=== PATIENT | female | born 1965 | race Caucasian/White ===

== ENCOUNTER 2017-05-13 17:29 | Inpatient (IN) | payer OTHER ==
[~2017-05-13] VITALS: Ht 154.9 cm; Wt 87.8 kg
--- NOTE | ~2017-05-13 | HP ---
PATIENT'S NAME: YONNY SHINE [facility] AGE: 52 Y [address] ROOM: [id number] [place], [place] [address] [facility] AD[facility] DATE: 05/13/2017 History & Physical DISCHARGE DATE: FAMILY PHYSICIAN: PHYSICIAN, UNKNOWN ATTENDING PHYSICIAN: Son Orellana DATE OF SERVICE: CHIEF COMPLAINT: Vaginal bleeding. HISTORY OF PRESENT ILLNESS: The patient is a 52-year-old female with a past medical history of type 2 diabetes mellitus, smoking, and recent diagnosis of a DVT who presents here with vaginal bleeding from [facility]. The patient was recently diagnosed with right lower extremity possible DVT. She was started on Xarelto, currently taking 15 mg p.o. twice a day. The patient reports that on she started having some vaginal bleeding. This bleeding has been progressively getting worse until today. She reports that for the past 3 days including on Sunday and Sunday and Sunday she had been having heavy bleeding. However, today she had to change multiple pads as she was having multiple vaginal bleeding. Her symptoms of bleeding were also associated with fatigue and lightheadedness. The patient went to [facility] and was found to have a hemoglobin of 6.8 compared to her last hemoglobin of 15. The patient received 4 units of packed red blood cells and transferred to our hospital for further care. The patient was seen by Dr. Lewis our AUTOMAT WATCHER and had a vaginal ultrasound which showed thickened endometrium measuring up to 2.2 cm and also likely small uterine fibroids with the largest measuring up to 2.3 cm. During her stay, her bleeding subsidized. Her repeat hemoglobin is 9.7. The patient reports that her last Coumadin was taken this morning. Of note, the patient does not have a definite report on her ultrasound. She reports that she got the ultrasound done on May 02 for superficial varicose vein. Ultrasound was done and the press operator meat told her she has a knot on her right upper thigh and a knot in her left. No knots on her right calf. She is not quite sure whether it is superficial or deep vein. Currently, we do not have the reports. The patient also reports of family history of DVT which include her mother, her son, and 2 of her maternal uncles. The patient denies any chest pain, shortness of breath, abdominal pain, nausea, vomiting, vertigo, dizziness, productive cough. PAST MEDICAL HISTORY: 1. Diabetes mellitus, type 2. 2. Smoking. 3. Recent history of DVT. [facility]GE[facility] 52 Y [address] ROOM: [id number] [place], [place] [address] [facility] AD[facility] DATE: 05/13/2017 History & Physical DISCHARGE DATE: FAMILY PHYSICIAN: PHYSICIAN, UNKNOWN ATTENDING PHYSICIAN: Son Orellana SURGICAL HISTORY: She has had multiple colon biopsies. FAMILY HISTORY: Mother has a history of DVT, son has a history of DVT, 2 of her maternal uncles have a history of DVT. 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 She has close to 35 years smoking history. She has 3 kids. MEDICATIONS: 1. Metformin. 2. Xarelto. REVIEW OF SYSTEMS: All systems have been reviewed and are negative except for what I mentioned in the HPI. PHYSICAL EXAMINATION: VITAL SIGNS: Afebrile. Blood pressure 117/64, heart rate of 83, respiratory rate 16, and saturating 95% on room air. GENERAL APPEARANCE: The patient is alert and awake, in no acute distress. HEAD: Normocephalic, atraumatic. EYES: Extraocular muscle intact. Sclerae nonicteric. NOSE: No nasal discharge. CHEST: Clear to auscultation bilaterally. HEART: Regular rate and rhythm. No murmurs, rubs, or gallops. MOUTH: Moist oral mucosa. ABDOMEN: Soft, nontender, and nondistended. Bowel sounds present. : The patient currently has a Burrell catheter in, no active bleeding seen around the orifice of the vagina. SKIN: Warm to touch. EVENT DECORATOR AND DESIGNER: The patient is alert and oriented x3. Motor and sensory are grossly intact. MUSCULOSKELETAL: Range of motion intact. LABORATORY DATA: Lactate 0.6. Hemoglobin 9.7, platelet 154, white blood cell of 11.7. BUN of 12, creatinine 0.5. Sodium 145, chloride of 116. HCG is found to be below 1. ASSESSMENT AND PLAN: 1. Acute blood loss anemia. Etiology is secondary to vaginal bleed and concurrent use of Xarelto. We will hold Xarelto for now. The patient's PATIENT'S NAME: F[facility]TIMA, [facility] AGE: 52 Y [address] ROOM: [address] [place], [place] [address] [facility] AD[facility] DATE: 05/13/2017 History & Physical DISCHARGE DATE: FAMILY PHYSICIAN: PHYSICIAN, UNKNOWN ATTENDING PHYSICIAN: Son Orellana hemoglobin initially was 6.8 from baseline of 15. The patient has received 4 units of blood. To check hemoglobin every 4 hours. We will type and screen. We will transfuse as needed. The patient already has an 18-gauge peripheral vein. We will add another 18-gauge. The patient is hemodynamically stable. We will follow clinically. 2. Vaginal bleeding. Etiology secondary to Xarelto use. However, ultrasound shows endometrial thickening and possible small fibroid. The patient is currently not bleeding. To transfuse as needed. Discussed case with Dr. Lewis. To hold any surgical intervention for now since the patient is currently on Xarelto, or at least she took Xarelto today. To evaluate tomorrow for possible hysterectomy on Sunday. 3. Deep vein thrombosis. The patient's right lower extremity history of DVT was acquired from the ultrasound press operator meat at [facility]. Not quite sure whether this is peripheral or actual deep vein thrombosis. We will repeat ultrasound Doppler here. If the patient has acute deep vein thrombosis, we will consider putting IVC filter until the patient gets surgical intervention. Also, it would be interesting to check some clotting disorder as patient has a family history of DVT. Discussed case with Dr. Tiwari. Dr. Tiwari to see this patient tomorrow. We will check a factor V Leiden and protamine gene mutation. Apparently, at the outside hospital, they had done a test for antiphospholipid syndrome and was told to have the repeat in 12 weeks before she was fully diagnosed with it. 4. Diabetes mellitus type 2. We will hold metformin for now, and we will put the patient on a sliding scale insulin. Greater than 70 minutes was spent on the patient's care and greater than 50% of the time was spent on direct patient care. Assessment and plan was discussed with the patient. The patient's and family question were answered with satisfaction. Also, case was discussed with Dr. Tiwari with Oncology Group and Dr. Lewis with AUTOMAT WATCHER. Code status discussed on admission. Code status, full code. MD Ratna FOSTER /[id number] D: [id number] T: [id number] HISTORY & PHYSICAL
--- NOTE | ~2017-05-13 | ER ---
PATIENT'S NAME: YONNY JUARES [facility] AGE: 52 Y [address] ROOM: [place] [address] LOCATION: [facility]U ADMIT DATE: 05/13/2017 ER/Outpatient Report DISCHARGE DATE: FAMILY PHYSICIAN: PHYSICIAN, UNKNOWN ATTENDING PHYSICIAN: Son Orellana CHIEF COMPLAINT: Vaginal bleeding. HISTORY OF PRESENT ILLNESS: Ms. Juares arrives by ambulance from [facility], where she was seen for vaginal bleeding. She states that she has a history of leg DVT and was started on Xarelto 10 days ago. At that time, her hemoglobin was 15, today it was 6.8. Around noon, she felt a significant increase in her vaginal bleeding with soaking through pads, thus went to the ER. She was seen there and found to be hypotensive and borderline tachycardic. She was given a total of 3 units of blood, is currently on her 4th, and had 3000 mL of normal saline for volume resuscitation. The local provider did try Cytotec by rectum with no decrease in her flow. Her vital signs have improved markedly since her initial evaluation. She was transferred here for OB-QUILLER MACHINE FIXER cares. PAST MEDICAL HISTORY: Documented on the record and reviewed by me. SOCIAL HISTORY: Documented on the record and reviewed by me. MEDICATIONS: Documented on the record and reviewed by me. ALLERGIES: DOCUMENTED ON THE RECORD AND REVIEWED BY ME. REVIEW OF SYSTEMS: All systems were reviewed and negative except as noted in the HPI. PHYSICAL EXAMINATION: VITAL SIGNS: Blood pressure 113/58, pulse 80, respiratory rate is 20, temperature 98.7, and SpO2 is 97% on room air. Pain 0/10. GENERAL: An age-appropriate female, recumbent on the exam table, in no apparent pain or distress. NEUROLOGIC: Awake and alert. GCS 15. Did not stand up for obvious reasons. HEENT: Normocephalic, atraumatic. Eyes are PERRL. Oropharynx is clear. NECK: Supple. Trachea is midline. CHEST: Heart has regular rate and rhythm. No murmurs. PATIENT'S NAME: YONNY JUARES [facility] AGE: 52 Y [address] ROOM: [place] [address] LOCATION: [facility]PCU ADMIT DATE: 05/13/2017 ER/Outpatient Report DISCHARGE DATE: FAMILY PHYSICIAN: PHYSICIAN, UNKNOWN ATTENDING PHYSICIAN: Son Orellana LUNGS: Clear to auscultation bilateral. No rhonchi, wheezes, or rales. ABDOMEN: Soft with minimal tenderness in the suprapubic region. Slight fullness was appreciated on exam. No rebound or guarding, otherwise. BACK: Grossly normal. EXTREMITIES: Warm and well perfused. SKIN: Clean, dry, and intact, but slightly pallorous. LABORATORY DATA AND X-RAYS: White count 11.7, hemoglobin 9.7, platelets of 154. INR is 1. HCG is undetectable. Procalcitonin is undetectable. CMS with mild hyperchloremia of 116, otherwise grossly unremarkable from an electrolyte standpoint. Renal function is appropriate. GFR is greater than 90. There are no obvious LFT abnormalities. FSH and LH obtained per Dr. Lewis at 15.2 and 10.0 respectively. Lactate 0.6. IMPRESSION: 1. Severe vaginal bleeding related to oral anticoagulant use. 2. Mild hyperchloremic metabolic acidosis related to volume expansion. EMERGENCY DEPARTMENT COURSE: The patient was seen and evaluated as above. She was deemed to be stable. Dr. Lewis evaluated the patient. She has recommended close observation of bleeding status. I spoke with Dr. Orellana, hospitalist to admit the patient for management of her bleeding status to ensure stabilization. Dr. Lewis will consult. All questions answered, and the patient was admitted without further issue. MD VENUS GROSS/sheila /[id number] d: 05/14/17 0817 t: 05/30/17 1254, OUTPATIENT REPORT
--- NOTE | ~2017-05-13 | CON ---
PATIENT'S NAME: FÁTIMA, [facility] AGE: 52 Y [address] ROOM: [place] [address] [facility] AD[facility] DATE: 05/13/2017 Consultation DISCHARGE DATE: FAMILY PHYSICIAN: PHYSICIAN, UNKNOWN ATTENDING PHYSICIAN: Son Orellana REFERRING PHYSICIAN: Tala Tiwari MD HISTORY OF PRESENT ILLNESS: This is a 52-year-old 8, para 3-0-5-3, who presents with heavy vaginal bleeding, on Xarelto. She was placed on Xarelto about 10 days ago for deep venous thrombosis . This is of the right leg. Her vaginal bleeding got heavy and constant on , and has gotten progressively heavier today. She has not been able to even wear Depends without bleeding on the sides lower on the legs. Her periods before this became slightly irregular, they had not been this heavy. OBJECTIVE: Speculum exam revealed a vaginal vault full of clots. Bimanual exam revealed a digitally normal cervix. Uterus and ovaries felt normal. Abdomen is soft, nontender. The patient looks stable. LABORATORY WORK: Her hemoglobin was 10 after 3 units of blood. FSH and LH are premenopausal. Serum hCG is negative. Transvaginal ultrasound revealed a normal-sized uterus with some small intramural fibroid. There is a thickened endometrial stripe that might be thick from blood clot. Ovaries are normal. IMPRESSION: 1. Menometrorrhagia. 2. Xarelto use. 3. Status post 4 units of packed red cells. 4. Remote from menopause. 5. Deep venous thrombosis. PLAN: The Xarelto needs to be stopped. Discussed options with the Hospitalist Service. We discussed placing an IVC filter versus stopping the Xarelto long enough to get the surgery done. We will see how the bleeding goes, and we will also continue to follow along with the Hospitalist Service. BASILIO RAVI MD PATIENT'S NAME: FÁTIMA, [facility] AGE: 52 Y [address] ROOM: [place] [id number] LOCATION: [facility] ADMIT DATE: 05/13/2017 Consultation DISCHARGE DATE: FAMILY PHYSICIAN: PHYSICIAN, UNKNOWN ATTENDING PHYSICIAN: Son Orellana/sheila /[id number] d: 05/14/17 0155 t: 06/07/17 0857, CONSULTATION REPORT
--- NOTE | ~2017-05-13 | OR ---
PATIENT'S NAME: YONNY SHINE [facility] AGE: 52 Y [address] ROOM: [place] [address] LOCATION: [facility]PCU ADMIT DATE: 05/13/2017 OR/Procedure Report DISCHARGE DATE: FAMILY PHYSICIAN: Tab Alfaro DO ATTENDING PHYSICIAN: Son Orellana SURGEON: Sam Gotti MD TREKKING GUIDE: DATE OF PROCEDURE: 05/14/2017 PROCEDURE: Right internal jugular central venous catheter. INDICATION: The patient is having a vaginal hysterectomy for hemorrhage, coagulopathy, need for vasopressors, volume assessment, and blood management. PROCEDURE IN DETAIL: After induction of general anesthesia, the patient was lying supine on the operating room table in slight Trendelenburg position. The right neck and chest were prepped with chlorhexidine 2% and maximal sterile barriers were worn at all times. Ultrasound was used to visualize the internal jugular vein with a single stick. Dark nonpulsatile blood was found on return. The catheter was placed without difficulty and the ultrasound used to view the wire and internal jugular vein. The skin nicked, dilated, and a 4- lumen, 8.5-Kyrgyz 16 cm catheter was placed with the wire and wire removed. All ports withdrew, blood flushed easily. It was sutured in place. Sterile dressing applied on top. Chest x-ray ordered in recovery. COMPLICATIONS: None. BLOOD LOSS: None. SAM GOTTI MD JJP/modl /[id number] d: 05/14/172128 t: 05/30/17 1256, OPERATIVE SUMMARY
--- NOTE | ~2017-05-13 | ENPV ---
Vascular Lower Extremities DVT Study Procedure Demographics Patient Name YONNY SHINE Date of Study 05/14/2017 Patient Number [id number] Gender Female Date of 1965 Age 52 Visit Number [id number] Height Accession Number [id number] Weight Room Number G6329 BSA BMI Referring Matti Archuleta Interpreting Juan C Benz MD Physician Physician Physician Ordering Physician Matti Archuleta Biofuels Technology Manager Hvac Commercial Salesperson Tanisha Casiano, RT,RVT,RDCS Conclusions Summary Normal venous duplex examination of the legs bilaterally with normal venous Doppler signals noted throughout. No evidence of thrombophlebitis is noted bilaterally in the deep and superficial veins of the legs. Small calf thrombi cannot be excluded. Procedure Type of Study: Veins:Lower Extremities DVT Study, Venous Duplex Lower Extremity Bilateral. Indications for Study:DVT, History of. Appropriate Use Criteria:9 Patient Status:Routine. Study Location:Inpatient Portable. Technical Quality:Adequate visualization. - Preliminary reported to:PHYLLIS moffett. Velocities are measured in cm/s ; Diameters are measured in cm Right Lower Extremities DVT Study Measurements Right 2D and Doppler Measurements + + + + +------+------+ + !Location !Visualized!Compressibility!Thrombosis!Signal!Reflux!Reflux ! ! ! ! ! ! ! !(sec) ! + + + + +------+------+ + !GSV Thigh !Yes !Yes !None !Phasic!No ! ! + + + + +------+------+ + !Common !Yes !Yes !None !Phasic!No ! ! !Femoral ! ! ! ! ! ! ! + + + + +------+------+ + !Prox !Yes !Yes !None !Phasic!No ! ! !Femoral ! ! ! ! ! ! ! + + + + +------+------+ + !Mid Femoral!Yes !Yes !None !Phasic!No ! ! + + + + +------+------+ + !Dist !Yes !Yes !None !Phasic!No ! ! !Femoral ! ! ! ! ! ! ! + + + + +------+------+ + !Popliteal !Yes !Yes !None !Phasic!No ! ! + + + + +------+------+ + !Gastroc !Yes !Yes !None !Phasic!No ! ! + + + + +------+------+ + !PTV !Yes !Yes !None !Phasic!No ! ! + + + + +------+------+ + !Peroneal !Yes !Yes !None !Phasic!No ! ! + + + + +------+------+ + Left Lower Extremities DVT Study Measurements Left 2D and Doppler Measurements + + + + +------+------+ + !Location !Visualized!Compressibility!Thrombosis!Signal!Reflux!Reflux ! ! ! ! ! ! ! !(sec) ! + + + + +------+------+ + !GSV Thigh !Yes !Yes !None !Phasic!No ! ! + + + + +------+------+ + !Common !Yes !Yes !None !Phasic!No ! ! !Femoral ! ! ! ! ! ! ! + + + + +------+------+ + !Prox !Yes !Yes !None !Phasic!No ! ! !Femoral ! ! ! ! ! ! ! + + + + +------+------+ + !Mid Femoral!Yes !Yes !None !Phasic!No ! ! + + + + +------+------+ + !Dist !Yes !Yes !None !Phasic!No ! ! !Femoral ! ! ! ! ! ! ! + + + + +------+------+ + !Popliteal !Yes !Yes !None !Phasic!No ! ! + + + + +------+------+ + !Gastroc !Yes !Yes !None !Phasic!No ! ! + + + + +------+------+ + !PTV !Yes !Yes !None !Phasic!No ! ! + + + + +------+------+ + !Peroneal !Yes !Yes !None !Phasic!No ! ! + + + + +------+------+ + Signature dtt: ZINA MEJÍA dtvianey: 05/14/1708 Physician Self Jane
--- NOTE | ~2017-05-13 | OR ---
[facility] 52 Y [address] ROOM: [place] [address] LOCATION: GPCU ADMIT DATE: 05/13/2017 OR/Procedure Report DISCHARGE DATE: 05/17/2017 FAMILY PHYSICIAN: Tab Alfaro DO ATTENDING PHYSICIAN: Son Orellana SURGEON: Tamar Lewis MD MACHINE GROUP LEADER: Dr. Kb Posey. DATE OF PROCEDURE: 05/14/2017 PREOPERATIVE DIAGNOSES: 1. Menometrorrhagia. 2. Anticoagulation. 3. Acute blood loss anemia requiring multiple transfusions. POSTOPERATIVE DIAGNOSES: 1. Menometrorrhagia. 2. Acute blood loss anemia. 3. Uterine fibroid. 4. Anticoagulation. PROCEDURE: 1. Total vaginal hysterectomy. 2. Bilateral salpingo-oophorectomy. BLOOD LOSS: 700 mL. ANESTHESIA: General endotracheal. COMPLICATIONS: Continues to require transfusion. OPERATIVE COURSE: The patient was taken to the operating room. As stated in the consultation, she continued to bleed profusely vaginally despite multiple blood transfusions and stopping her anticoagulation. Ultrasound that was done was essentially normal. The patient had had vaginal delivery though. I discussed vaginal hysterectomy with her. A verbal time-out is undertaken. DESCRIPTION OF PROCEDURE: The patient was placed under general endotracheal anesthetic and her legs were placed in the candy-cane stirrups. She was prepped and draped, and her bladder was drained. A weighted speculum was placed and the cervix was pulled with a single-toothed tenaculum. The cervix was circumscribed with a knife. The uterosacral ligaments were clamped, cut, and ligated with 0 Vicryl. The posterior cul-de-sac was entered and a long weighted speculum was placed. The cardinal ligaments were clamped, cut, and ligated with 0 Vicryl. The anterior cul-de-sac was then entered with some difficulty. The rest of the cardinal ligaments were clamped, cut, and ligated [facility] AGE: 52 Y [address] ROOM: [place] [address] LOCATION: GPCU ADMIT DATE: 05/13/2017 OR/Procedure Report DISCHARGE DATE: 05/17/2017 FAMILY PHYSICIAN: Tab Alfaro DO ATTENDING PHYSICIAN: Son Orellana with 0 Vicryl. The broad ligaments were clamped, cut, and ligated with 0 Vicryl. Eventually, we had almost delivered the uterus posteriorly, but it felt to have a large posterior fibroid. The uterus was larger than anticipated by ultrasound measurements and physical exam. The uterus was then bivalved by Dr. Posey and delivered the uterus intact. The endometrial canal was entered. The broad ligament on the left was clamped, cut, and ligated with 0 Vicryl and that portion of the uterus was removed. The same procedure was done on the right. The uterus, placenta will be sent to Pathology along with the tubes and ovaries. Each tube and ovary were grasped with a [place], and the curved Butch clamp was placed across the infundibulopelvic ligament. These pedicles were cut and ligated. The bleeding did require on some of the pedicles [id number] suturing. Careful attention was placed to the normal course of the ureters. The peritoneum was then closed with 2-0 Vicryl in a pursestring fashion. The aereqm-sk-qjyst apical sutures for the vaginal cuff were placed. The rest of the cuff was closed in a kqyrxn-qc-sdakt fashion with 0 Vicryl. I did pack the vagina until the next day, and a Burrell catheter was placed and had clear yellow urine. The catheter will be left in place until tomorrow a.m. as well. The patient tolerated the procedure well and went to Recovery in stable condition. She will continue to be followed by the hospitalist as well because of her acute blood loss anemia and multiple transfusions. TAMAR LEWIS MD KHP/modl /[id number] CC: Kemar Leiva MD d: t: 06/26/17 1535, OPERATIVE SUMMARY
--- NOTE | ~2017-05-13 | DS ---
[facility] 52 Y [address] ROOM: [address] [place], [place] [address] LOCATION: GPCU ADMIT DATE: 05/13/2017 Discharge Summary DISCHARGE DATE: 05/17/2017 FAMILY PHYSICIAN: Tab Alfaro DO ATTENDING PHYSICIAN: Son Orellana PRINCIPAL DIAGNOSES: 1. Acute blood loss anemia. 2. Uterine hemorrhage. 3. Distal deep venous thrombosis. 4. Long-term anticoagulation. 5. Type 2 diabetes. 6. Lower extremity weakness. HOSPITAL COURSE: Please refer to the admission H and P for detailed history on initial presentation. This is a 52-year-old female who was recently diagnosed with a distal DVT and started on Xarelto, presents with a few-day history of profuse vaginal bleeding, requiring multiple transfusions and resuscitations, and subsequently seen by Gynecology team and had undergone hysterectomy. The patient since hysterectomy had improved significantly and the bleeding had stopped, and she is hemodynamically stable. Final pathology report from the hysterectomy pending, but preliminary report probably suggestive of possible endometrial carcinoma, and Gynecology team is continuing to follow up on this, and the patient will follow up as an outpatient. The patient also had repeat ultrasound of her right lower extremity, which did not show any DVT. At this point, after discussion with Oncology team and risks and benefits, it was decided that we are going to hold anticoagulation and she would do repeat ultrasound of her extremities in 2-3 weeks to re-evaluate. The risks and benefits of being on anticoagulation versus holding off on it and rechecking it has been extensively discussed with the patient and she agrees with current decision. The patient also had complaints of lower extremity weakness while hospitalization, this is in part possibly due to positioning during surgery and she has shown improvement in this regard as well with working with Physical Therapy. The patient is to continue physical therapy as outpatient as well in the meantime. PHYSICAL EXAMINATION: GENERAL: The patient is awake, alert, oriented x3, in no acute distress. LUNGS: Clear to auscultation bilaterally. HEART: S1, S2, regular rate and rhythm. ABDOMEN: Soft, nontender, and nondistended. EXTREMITIES: Without edema. NEUROLOGIC: Grossly nonfocal. MEDICATIONS: Per DEC. [facility] 52 Y [address] ROOM: [address] [address] LOCATION: GPCU ADMIT DATE: 05/13/2017 Discharge Summary DISCHARGE DATE: 05/17/2017 FAMILY PHYSICIAN: Tab Alfaro DO ATTENDING PHYSICIAN: Son Orellana DISPOSITION: Home. Follow up with Gynecology. Greater than 30 minutes were spent in discharge planning and facilitating. MD EVELIO PHELAN/modl /[id number] d: 05/17/17 1915 t: 05/30/17 1259, DISCHARGE SUMMARY
[2017-05-13 17:51] LABS: BASOPHIL # 0.1 K/uL (0.0-0.2); BASOPHIL % 0.5 %; EOSINOPHIL # 0.1 K/uL (0.0-0.5); HEMATOCRIT 28.8 % (33.0-46.0); HEMOGLOBIN 9.7 g/dL (10.0-15.0); IMMATURE GRANULOCYTE # 0.1 K/uL (0.0-0.3); IMMATURE GRANULOCYTE % 1.1 %; LYMPHOCYTE # 3.2 K/uL (0.8-4.0); LYMPHOCYTE % 27.6 %; MCH 29.3 pg (27.0-34.0); MCHC 33.7 gm/dL (32.0-36.5); MONOCYTE # 0.7 K/uL (0.0-1.0); MONOCYTE % 5.6 %; MPV 10.3 fl (9.4-12.4); NEUTROPHIL # (ANC) 7.5 K/uL (1.8-7.8); NEUTROPHIL % 64.2 %; NRBC % 0 /100WBC (0-0.00); PLATELET COUNT 154 K/uL (150-450); RBC 3.31 M/uL (3.50-5.50); RDW-CV 15.7 % (11.9-14.6); WBC 11.7 K/uL (4.0-11.0)
[2017-05-13 17:59] LABS: INR - (THERAPEUTIC) 1.08 (0.92-1.07); PROTIME 11.3 SECONDS (9.8-11.4); PTT 28 SECONDS (25-32)
[2017-05-13 18:09] LABS: ALBUMIN 2.2 gm/dL (3.5-5.0); ALK PHOS 49 IU/L (33-138); ALT 19 IU/L (12-78); AST 16 IU/L (10-40); BLOOD UREA NITROGEN 12 mg/dL (6-24); CO2 23 mMol/L (22-32); CREATININE 0.5 mg/dL (0.5-1.1); POTASSIUM 3.9 mMol/L (3.7-5.1); SODIUM 145 mMol/L (135-145); TOTAL BILIRUBIN 0.4 mg/dL (0.0-1.5)
[2017-05-13 18:10] LABS: ANION GAP 9.9 (10.0-19.0); CALCIUM 6.8 mg/dL (8.5-10.5); CHLORIDE 116 mMol/L (96-110); TOTAL PROTEIN 4.3 g/dL (6.0-8.4)
[2017-05-13] MEDS ORDERED: XARELTO15 MG PO (20:15)
[2017-05-13] MEDS ORDERED: GLUCOPHAGE500 MG PO (20:15)
[2017-05-13 23:56] LABS: HEMOGLOBIN 8.1 g/dL (10.0-15.0)
--- NOTE | 2017-05-14 06:22 | NUR ---
Patient admitted from ED to PCU at around 1930. Patient is from [place] and she had been recently started on Xarelto from blood clot in her right leg. On she began experiencing significant vaginal bleeding. She came in to [facility] yesterday and had SBP's 80's and Hgb 6.8. She was given a total of 4 units of PRBC's and 3L NS boluses and was transferred here. She was examined by Dr. Lewis. Patient's Hgb went up to 9.7 and SBP's were 120's. She is alert/oriented x3 and the rest of her vital signs are stable. She is on room air. Significant medical history of "borderline" type 2 diabetes and family history of blood clots.
--- NOTE | 2017-05-14 06:24 | NUR ---
Significant Event: Patient is alert/oriented x3. SBP's have been 80-100's. HR's 80's. Patient has soaked a total of 5 Depends with vaginal blood. Hgb went from 9.[address] Chino ordered to transfuse 2 units of PRBC's. 2nd unit finished around 0540 and she is currently on NS at 100 mL/hr. Denies any pain. Patient refused to have Burrell catheter in place so it was D/C'd around 0345 and she has voided since then. Follow up: Dr. Tiwari to see today. BLE dopplers today to check for DVT's. Continue to monitor bleeding.
[2017-05-14 06:43] LABS: HEMATOCRIT 25.3 % (33.0-46.0); HEMOGLOBIN 8.7 g/dL (10.0-15.0)
[2017-05-14 11:15] LABS: HEMATOCRIT 24.3 % (33.0-46.0); HEMOGLOBIN 8.4 g/dL (10.0-15.0)
[2017-05-14 13:19] LABS: ALPHA ANGLE 69 degrees (70-81); CLOTTING TIME 62 seconds (43-82); MAXIMUM CLOT FIRMNESS 55 mm (51-72)
--- NOTE | 2017-05-14 13:44 | NUR ---
Reviewed patient and chart and attended morning huddle to get update on patient. Patient is heading to surgery this morning for a hysterectomy. Per nursing staff patient will transfer to [facility] following surgery. Did not have a chance to meet with patient and/or family before surgery. Will meet with them after surgery to assess their needs.
--- NOTE | 2017-05-14 15:21 | NUR ---
D:Patient to [facility] at 1040 per cart with transport. Family with her. Report given to [facility] nurse. Patient is alert and orientated, is not having pain, but is continuing to have vaginal bleeding. Patient able to sign permits, and verbelizes understanding of procedure.
[2017-05-14 16:26] LABS: BICARBONATE 23.9 mmol/L (18.0-23.0); PCO2 41 mmHg (35-45); PO2 300 mmHg (80-90); POTASSIUM 3.8 mEq/L (3.7-5.1); SODIUM 144 mEq/L (135-145)
[2017-05-14 18:31] LABS: BASOPHIL % 0.2 %; EOSINOPHIL # 0.1 K/uL (0.0-0.5); EOSINOPHIL % 0.4 %; HEMOGLOBIN 9.5 g/dL (10.0-15.0); IMMATURE GRANULOCYTE # 0.3 K/uL (0.0-0.3); IMMATURE GRANULOCYTE % 1.7 %; LYMPHOCYTE # 1.7 K/uL (0.8-4.0); LYMPHOCYTE % 9.4 %; MCH 30.4 pg (27.0-34.0); MCHC 35.2 gm/dL (32.0-36.5); MCV 86.5 fl (83.0-98.0); MONOCYTE # 0.8 K/uL (0.0-1.0); MONOCYTE % 4.4 %; MPV 10.4 fl (9.4-12.4); NEUTROPHIL # (ANC) 14.7 K/uL (1.8-7.8); NEUTROPHIL % 83.9 %; NRBC % 0 /100WBC (0-0.00); PLATELET COUNT 131 K/uL (150-450); RBC 3.12 M/uL (3.50-5.50); RDW-CV 15.3 % (11.9-14.6); WBC 17.6 K/uL (4.0-11.0)
[2017-05-14 18:40] LABS: INR - (THERAPEUTIC) 1.02 (0.92-1.07); PROTIME 10.7 SECONDS (9.8-11.4); PTT 23 SECONDS (25-32)
[2017-05-14 22:31] LABS: HEMOGLOBIN 9.7 g/dL (10.0-15.0)
[2017-05-15 02:46] LABS: HEMATOCRIT 26.4 % (33.0-46.0); HEMOGLOBIN 9.2 g/dL (10.0-15.0)
--- NOTE | 2017-05-15 05:50 | NUR ---
Significant Event: Patient came back from PACU around 1845. She had a total hysterectomy with bilatera ovary removal and vaginal packing. Patient arrived on 4L O2. Attempted to wean off but has required 2L O2 to keep O2 sats > 90%. Patient received morphine x1 and Percocet x1, with relief. She was also provided a K-pad for her back and she states that has helped her. Vital signs have been stable throughout the night. Burrell in place with 3950 mL UOP. NS at 100 mL/hr via R) IJ quad lumen. She received 2 doses of Cefoxitin last night. She is alert/oriented and has rested well throughout the night. Currently on clear liquid diet. Follow up: Dr. Lewis to see patient today and fill out OB post-op day 1 orders.
[2017-05-15 06:48] LABS: BASOPHIL % 0.3 %; EOSINOPHIL % 0.2 %; HEMATOCRIT 25.7 % (33.0-46.0); HEMOGLOBIN 8.8 g/dL (10.0-15.0); IMMATURE GRANULOCYTE # 0.2 K/uL (0.0-0.3); IMMATURE GRANULOCYTE % 1.4 %; LYMPHOCYTE % 14.5 %; MCH 29.6 pg (27.0-34.0); MCHC 34.2 gm/dL (32.0-36.5); MCV 86.5 fl (83.0-98.0); MONOCYTE # 0.9 K/uL (0.0-1.0); MONOCYTE % 6.4 %; MPV 10.4 fl (9.4-12.4); NEUTROPHIL # (ANC) 10.6 K/uL (1.8-7.8); NEUTROPHIL % 77.2 %; NRBC % 0 /100WBC (0-0.00); PLATELET COUNT 148 K/uL (150-450); RBC 2.97 M/uL (3.50-5.50); RDW-CV 15.6 % (11.9-14.6); WBC 13.7 K/uL (4.0-11.0)
[2017-05-15 10:21] LABS: HEMATOCRIT 26.1 % (33.0-46.0); HEMOGLOBIN 8.9 g/dL (10.0-15.0)
--- NOTE | 2017-05-15 12:35 | NUR ---
Introduced self and role of care management to pt. She lives in [place] and family lives with her. She is independent with cares and planning home on dc. She states work is aware she is here and nothing needed at this [email or web address]
--- NOTE | 2017-05-15 17:00 | NUR ---
Significant Event:Patient has c/o numbness and tingling in legs, reports she has had it since surgery. Is having trouble walking and standing d/t N/T. Has been up to commode twice with 1-2 assist. Burrell dc'd and voiding ok. Right jugular dc'd today. Last Hgb was 8.8 at 1000 this morning. Taking diabetic diet and tolerating well. Has had Percoset twice more for back than surgical pain. Oxygen weaned off, on room air. Started on iron. No vaginal bleeding. Follow up:Monitor voiding, bleeding, Hgb
--- NOTE | 2017-05-15 19:19 | NUR ---
D:Patient had wanted to walk to bathroom to void. Has been having N/T in legs since surgery. Dr. Lewis thinks it is from being stirups so long yesterday. Patient able to sit on side of bed, staff and her sister helped her stand, and patient was ok till tried to take a step and her knees buckled. We assisted her back to bed. Patient didn't fall or even go to her knees but was unable to step. Patient voided on bedpan and had remained in bed. In mid afternoon, patient had to void, wanted to at least try the commode, she can help you transfer herself, but is unable to step to commode. Legs continue to feel numb and tingly.
--- NOTE | 2017-05-16 04:25 | NUR ---
Significant Event:A/Ox3. VSS on RA. Patient continues to have numbness to bilateral legs from mid-thigh down to ankles. Transfers well with walker to BSC and back to bed. Marched in place each time she got up to the bathroom, still no relief from numbness. Percocet q4h per patient request for back pain, last dose at 0330 for 8/10 pain. Patient resting comfortably at this time. No vaginal bleeding noted. Good UOP. PIV to R)wrist saline locked. Follow up:Continue to monitor numbness to legs. PT consult??
[2017-05-16 04:40] LABS: HEMATOCRIT 25.5 % (33.0-46.0); HEMOGLOBIN 8.7 g/dL (10.0-15.0)
--- NOTE | 2017-05-16 17:50 | NUR ---
Significant Event: A/Ox3. VSS on RA. Pt continues to complain of numbness to bilateral lower extremities from thigh to mid calf. Ambulates with walker and gaitbelt with 1 assist to bathroom and tolerates well. Percocet q4h for back pain per pt request. Last dose for pain 05/24 at 1722. Pt also uses heating pad on back for pain. No vaginal bleeding noted. Adequate UOP. IV to right wrist SL and flushes well. Follow Up: Monitor numbness to legs. Possible d/c tomorrow
--- NOTE | 2017-05-17 04:05 | NUR ---
Pt a/o. vss on RA, afebrile. sba with fww/gb. still c/o numbness/tingling from mid thigh to calf. percocet 2 tabs given at hs otherwise no c/o pain. no insulin needed at hs. states had smear of blood this am on wipe but otherwise no blood. remains sl plan: ? discharge today
[2017-05-17 06:04] LABS: HEMATOCRIT 26.7 % (33.0-46.0); HEMOGLOBIN 9.1 g/dL (10.0-15.0)
[2017-05-17 10:16] LABS: HEMATOCRIT 31.3 % (33.0-46.0); HEMOGLOBIN 10.4 g/dL (10.0-15.0)
[2017-05-17] MEDS ORDERED: FEOSOL325 MG PO (13:55)
[2017-05-17] MEDS ORDERED: ULTRAM50 MG PO (13:57)
[2017-05-17 14:03] LABS: HEMATOCRIT 30.7 % (33.0-46.0); HEMOGLOBIN 10.4 g/dL (10.0-15.0)
--- NOTE | 2017-05-17 16:01 | NUR ---
Significant Event: pt up halls with walker ok. PT also amb pt 120ft. hgb last over 10. no s/s bleeding. Diabetic form and booklet given. Teaching done on all meds and rx given also for walker and work release. No c/o by pt. IV dcd intact. Teaching given and discussed on vag.hyster. also gyno. told pt about activity restrictions. No more questions, pt states all understanding and will go get her walker as ordered for stability. US to be done on R Leg set up and discussed. Follow up:
== END 2017-05-17 16:10 | disposition disaster alternative care site (69) | DRG 760 ==
LOC: GMED 17:29 → GPCU 18:45
PROVIDERS: Anesthesiology; Emergency Medicine; Internal Medicine; Nurse Anesthetist, Certified Registered; Obstetrics & Gynecology; ADMIT Family Medicine
PROC: 30233R1 Transfusion of Nonautologous Platelets into Peripheral Vein, Percutaneous Approach (ICD-10-PCS; principal; 2017-05-14)
PROC: 30233N1 Transfusion of Nonautologous Red Blood Cells into Peripheral Vein, Percutaneous Approach (ICD-10-PCS; principal; 2017-05-14)
PROC: 30233K1 Transfusion of Nonautologous Frozen Plasma into Peripheral Vein, Percutaneous Approach (ICD-10-PCS; principal; 2017-05-14)
DX: N93.9 Abnormal uterine and vaginal bleeding, unspecified (principal); D62 Acute posthemorrhagic anemia; I82.401 Acute embolism and thrombosis of unspecified deep veins of right lower extremity; D52.9 Folate deficiency anemia, unspecified; E11.9 Type 2 diabetes mellitus without complications; N92.1 Excessive and frequent menstruation with irregular cycle; Z79.01 Long term (current) use of anticoagulants; R93.8 Abnormal findings on diagnostic imaging of other specified body structures
CPT/HCPCS: J0690; J0694; J2001; J2270; J3010; J7030; J7040; J7050; P9012; P9016; P9017; P9035; P9045

== ENCOUNTER → 2017-05-31 | Outpatient (CLI) | payer OTHER ==
[~2017-05-31] MED LIST: FEOSOL325 MG PO; GLUCOPHAGE500 MG PO; ULTRAM50 MG PO; XARELTO15 MG PO
--- NOTE | ~2017-05-31 | ENPV ---
Vascular Lower Extremities DVT Study Procedure Demographics Patient Name YONNY SHINE Date of Study 05/31/2017 Patient Number [id number] Gender Female Date of 1965 Age 52 Visit Number [id number] Height Accession Number [id number] Weight Room Number BSA BMI Referring Dominic Avilez DO Yareli Benz MD Physician Physician Physician Ordering Physician Esteban Ochoa MD Developer Programmer Mine Motor Engineer Sisi Segal T, [facility] Conclusions Summary No evidence of deep vein thrombosis or superficial thrombophlebitis in the right lower extremity . Procedure Type of Study: Veins:Lower Extremities DVT Study, Lower Extremity Right. Indications for Study:Previous DVT. Appropriate Use Criteria:6 Patient Status:Routine. Study Location:Vascular Lab. Technical Quality:Good visualization. Velocities are measured in cm/s ; Diameters are measured in cm Right Lower Extremities DVT Study Measurements Right 2D and Doppler Measurements + + + + +------+------+ + !Location !Visualized!Compressibility!Thrombosis!Signal!Reflux!Reflux ! ! ! ! ! ! ! !(sec) ! + + + + +------+------+ + !GSV Thigh !Yes !Yes !None !Phasic! ! ! + + + + +------+------+ + !Common !Yes !Yes !None !Phasic! ! ! !Femoral ! ! ! ! ! ! ! + + + + +------+------+ + !Prox !Yes !Yes !None !Phasic! ! ! !Femoral ! ! ! ! ! ! ! + + + + +------+------+ + !Mid Femoral!Yes !Yes !None !Phasic! ! ! + + + + +------+------+ + !Dist !Yes !Yes !None !Phasic! ! ! !Femoral ! ! ! ! ! ! ! + + + + +------+------+ + !Popliteal !Yes !Yes !None !Phasic! ! ! + + + + +------+------+ + !PTV !Yes !Yes !None !Phasic! ! ! + + + + +------+------+ + !Peroneal !Yes !Yes !None !Phasic! ! ! + + + + +------+------+ + Left Lower Extremities DVT Study Measurements Left 2D and Doppler Measurements + + + + +------+------+ + !Location !Visualized!Compressibility!Thrombosis!Signal!Reflux!Reflux ! ! ! ! ! ! ! !(sec) ! + + + + +------+------+ + !GSV Thigh !Yes !Yes !None !Phasic! ! ! + + + + +------+------+ + !Common !Yes !Yes !None !Phasic! ! ! !Femoral ! ! ! ! ! ! ! + + + + +------+------+ + Signature dtt: ZINA MEJÍA dtvianey: 05/31/17 1347 Physician Self Edit
== END | disposition disaster alternative care site (69) ==
LOC: GCAR 13:33
DX: D62 Acute posthemorrhagic anemia (principal); I82.409 Acute embolism and thrombosis of unspecified deep veins of unspecified lower extremity; N93.9 Abnormal uterine and vaginal bleeding, unspecified